=== PATIENT | male | born 1995 | race African-American/Black ===

== ENCOUNTER 2017-12-27 14:13 | Emergency (ER) | payer BC, OTHER ==
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
[2017-12-27] MEDS ORDERED: Adacel (T-DAP) 0.5 ML VIAL ONE (15:19)
[2017-12-27] MEDS ORDERED: Bacitracin Zinc 1 Packet ONE (16:54)
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
== END 2017-12-27 18:10 | disposition home or self-care (01) ==
LOC: ERS 14:13
DX: S12.600A Unspecified displaced fracture of seventh cervical vertebra, initial encounter for closed fracture (principal); S06.9X9A Unspecified intracranial injury with loss of consciousness of unspecified duration, initial encounter; S00.212A Abrasion of left eyelid and periocular area, initial encounter; F90.9 Attention-deficit hyperactivity disorder, unspecified type; Z79.899 Other long term (current) drug therapy; V43.62XA Car passenger injured in collision with other type car in traffic accident, initial encounter
CPT/HCPCS: 70450; 71045; 72040; 72125; 72170; 90471; 90715; G0390

== ENCOUNTER 2018-01-11 08:32 | Emergency (ER) | payer BC, OTHER | END 2018-01-11 10:11 | disposition home or self-care (01) | LOC: ERS 08:32 | DX: S12.600D Unspecified displaced fracture of seventh cervical vertebra, subsequent encounter for fracture with routine healing (principal); F90.9 Attention-deficit hyperactivity disorder, unspecified type; Z79.899 Other long term (current) drug therapy; V43.62XD Car passenger injured in collision with other type car in traffic accident, subsequent encounter | CPT/HCPCS: 99283 ==

== ENCOUNTER 2018-01-17 08:47 | Outpatient (CLI) | payer BC, OTHER ==
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
== END 2018-01-17 08:48 | disposition home or self-care (01) ==
LOC: TBSIIMAG 08:47
PROVIDERS: ATTEND Neurological Surgery
DX: S12.600A Unspecified displaced fracture of seventh cervical vertebra, initial encounter for closed fracture (principal)
CPT/HCPCS: 72040